=== PATIENT | female | born 1990 | race Caucasian/White ===

== ENCOUNTER 2016-12-16 16:58 | Emergency (ER) | payer OTHER ==
[2016-12-16] MEDS ORDERED: OPTIRAY 350 100 ML VIAL HMH IV ONE (16:59)
[2016-12-16] MEDS ORDERED: SODIUM CHLORIDE 0.9% 1,000 ML ONE (21:24)
== END 2016-12-17 00:14 | disposition home or self-care (01) ==
LOC: ER 16:58
DX: R10.84 Generalized abdominal pain (principal); N30.00 Acute cystitis without hematuria
CPT/HCPCS: 36415; 74177; 80053; 81001; 82274; 83690; 84703; 85025; 87088; 96360; 96361; 99284; Q9967